=== PATIENT | female | born 2005 | race Hispanic/Latino ===

== ENCOUNTER 2024-06-01 14:29 | Emergency (ER) | payer BC, SELFPAY ==
--- NOTE | ~2024-06-01 | XR_ITS ---
CHEST RADIOGRAPH, PA AND LATERAL CLINICAL HISTORY: chest pain WORK ORDER DETAILER . COMPARISON: None available TECHNIQUE: PA and lateral views of the chest. FINDINGS The cardiomediastinal silhouette is unremarkable. The lungs are clear. Visualized osseous structures and soft tissues are unremarkable. IMPRESSION: No focal infiltrate or effusion. Reviewed, dictated and finalized at location A.
[2024-06-01 14:31] VITALS: BP 120/78; PULSE 93; RESP 18; TEMP 36.6; O2SAT 100
--- NOTE | 2024-06-01 14:32 | ECG_ITS ---
Test Date: 2024-06-01 14:38:43 Measurements Intervals [place] Rate: 89 P: 49 WV: 153 QRS: 95 QRSD: 98 T: 47 QT: 361 QTc: 440 Interpretive Statements SINUS RHYTHM RIGHT AXIS DEVIATION BORDERLINE ECG No previous ECG available for comparison Electronically Signed On 06-01-2024 15:57:31 CDT by Kermit Hurt D.O.
[2024-06-01 15:32] VITALS: O2SAT 100
[2024-06-01 15:33] VITALS: BP 117/76; PULSE 80; PULSE 82; RESP 20; O2SAT 99
--- NOTE | 2024-06-01 15:50 | ED.GENADULT ---
HPI - General Adult General Chief complaint: Chest Pain Stated complaint: Chest pain -sent by Time Seen by Provider: 06/01/24 15:29 History of Present Illness HPI narrative: 19-year-old female presenting to the emergency department for evaluation for to 3 days of intermittent left-sided chest pain. Patient states the pain as located just below her left breast. Patient denies any recent coughs colds or fevers. Patient denies any recent falls or injuries. Patient denies any prior cardiac history denies any previous PE or DVT. Patient denies any associated shortness of breath or calf tenderness. Related Data Allergies Allergy/AdvReac Type Severity Reaction Status Date / Time No Known Allergies Allergy Verified 06/01/24 15:32 Review of Systems Review of Systems: All systems reviewed & are unremarkable except as noted in HPI and below Exam Narrative: APPEARANCE: Well appearing, no pain, no distress, well-nourished. HEAD: normocephalic, atraumatic. EYES: PERRLA/EOMI, conjunctivae clear. NOSE: Normal no drainage EARS:TMS clear with good light reflex. THROAT: Pharynx clear, no exudate. NECK: Supple. No adenopathy, no masses. RESPIRATORY: Airway patent, respirations nonlabored. Clear to auscultation bilaterally, no rales, rhonchi, wheezing. CARDIOVASCULAR: Regular rate and rhythm without murmurs rubs or gallops. ABDOMINAL: Soft, nontender, nondistended, normal bowel sounds MUSCULOSKELETAL: Moves all extremities. Strength/ROM intact, No edema, No calf tenderness. NEURO: Alert. Cranial nerves II through XII intact. Grossly intact SKIN: Warm, dry. Normal Color Course Vital Signs Vital signs: Vital Signs Temperature 97.9 F 06/01/24 14:31 Pulse Rate 93 06/01/24 14:31 Respiratory Rate 18 06/01/24 14:31 Blood Pressure 120/78 06/01/24 14:31 Pulse Oximetry 100 06/01/24 14:31 Oxygen Delivery Room Air 06/01/24 14:31 Temperature 97.9 F 06/01/24 14:31 Pulse Rate 87 06/01/24 17:17 Respiratory Rate 18 06/01/24 17:17 Blood Pressure 113/72 06/01/24 17:17 Pulse Oximetry 97 06/01/24 17:17 Oxygen Delivery Room Air 06/01/24 15:32 Medical Decision Making [facility] Narrative Medical decision making narrative: 19-year-old female presents emergency department for evaluation for left-sided chest wall pain. Patient has been ongoing since early this morning. Patient is currently afebrile with no leukocytosis and hemoglobin of 12.3. D-dimer was not elevated INR is 1.0. No acute abnormalities on the patient's CMP patient had a negative troponin. Previous test was negative. Chest x-ray shows no acute cardiopulmonary abnormality. EKG showed normal sinus rhythm. Suspect pleurisy versus musculoskeletal chest wall pain. Patient did feel improved with treatment. Patient was updated on the results of her workup and was comfortable the plan for discharge and close follow-up. Differential Diagnosis Differential Diagnosis: COVID, RSV, influenza, pulmonary embolism, ACS Vital Signs Vital Signs: Vital Signs Temperature 97.9 F 06/01/24 14:31 Pulse Rate 93 06/01/24 14:31 Respiratory Rate 18 06/01/24 14:31 Blood Pressure 120/78 06/01/24 14:31 Pulse Oximetry 100 06/01/24 14:31 Oxygen Delivery Room Air 06/01/24 14:31 Temperature 97.9 F 06/01/24 14:31 Pulse Rate 87 06/01/24 17:17 Respiratory Rate 18 06/01/24 17:17 Blood Pressure 113/72 06/01/24 17:17 Pulse Oximetry 97 06/01/24 17:17 Oxygen Delivery Room Air 06/01/24 15:32 Lab Data Lab results reviewed: Yes I reviewed the patient's lab results. 06/01/24 15:40 06/01/24 15:40 Labs: Lab Results 06/01/24 06/01/24 Range/Units 15:40 16:39 WBC 7.8 (4.5-10.0) K/mm3 RBC 4.49 (4.2-5.4) M/mm3 Hgb 12.3 (12.0-15.0) g/dL Hct 38.6 (37.0-47.0) % MCV 86.0 (80-100) fl MCH 27.4 (26-34) pg MCHC 31.9 L (32-36) g/dl RDW 13.1 (11.5-14.5) % Plt Count 306 (150-375) k/mm3 MPV 9.9 (7.4-10.4) fl Immature Gran % (Auto) 0.1 (0-0.5) % Neut % (Auto) 57.0 (45.5-73.1) % Lymph % (Auto) 33.3 (18.3-44.2) % Fisher % (Auto) 8.3 (2.6-8.5) % Eos % (Auto) 0.9 (0-4.4) % Baso % (Auto) 0.4 (0.2-1.2) % Lymph # (Auto) 2.60 (0.9-3.2) K/mm3 Fisher # (Auto) 0.7 H (0.1-0.6) K/mm3 Eos # (Auto) 0.1 (0-0.3) K/mm3 Baso # (Auto) 0.0 (0.0-0.1) K/mm3 Abs Immat Gran (auto) 0.01 (0.00-0.031) K/mm3 Absolute Neuts (auto) 4.5 (1.3-6.7) K/mm3 Absolute Nucleated RBC 0.000 (0.0-0.012) K/mm3 Nucleated RBC % 0.0 (0.0-0.2) % PT 13.6 (11.1-14.7) Seconds INR 1.0 APTT 32.2 (22.3-36.8) Seconds D-Dimer < 0.27 (<0.48) ug/mL Sodium 137 (137-145) mmol/L Potassium 3.9 (3.4-5.0) mmol/L Chloride 106 (98-107) mmol/L Carbon Dioxide 22 (22-30) mmol/L Anion Gap 9 (4-12) mmol/L BUN 7 (7-17) mg/dL Creatinine 0.69 L (0.7-1.0) mg/dL Estim Creat Clear Calc Not Reportable Estimated GFR > 60 (59 - ) Glucose 91 (65-110) mg/dL Calcium 9.0 (8.4-10.2) mg/dL Total Bilirubin 0.5 (0.2-1.3) mg/dL AST 30 (14-36) U/L ALT 19 (6-35) U/L Alkaline Phosphatase 70 (38-126) U/L Troponin I < 0.012 (0.000-0.034) ng/mL Total Protein 8.0 (6.3-8.2) g/dL Albumin 4.6 (3.5-5.1) g/dL Lipase 63 (23-300) U/L POC Urine HCG, Qual Negative (Negative) Discharge Plan Discharge Clinical Impression: Atypical chest pain Patient Disposition: Home, Self-Care Condition: Stable Instructions: Antibiotic Form, Pleurisy (ED), Chest Wall Pain (ED) Additional Instructions: Tylenol and ibuprofen for pain control. Have close follow-up with your primary care physician. If you have any worsening symptoms and please call or return to the emergency department. Patient Language: [place] Follow-up/Referrals: PHYSICIAN NOT ON STAFF,NONSTAFF [Non-Staff] - Quality HEART score for chest pain patients History: slightly suspicious ECG: normal Age: < or = to 45 years Risk factors: no risk factors known Troponin: < or = to 1x normal limit Heart score: 0
[2024-06-01 15:53] LABS: Basophils Percent Auto 0.4 % (0.2-1.2); Eosinophils Absolute Auto 0.1 K/mm3 (0-0.3); Eosinophils Percent Auto 0.9 % (0-4.4); Hematocrit 38.6 % (37.0-47.0); Hemoglobin 12.3 g/dL (12.0-15.0); Immature Granulocyte Absolute 0.01 K/mm3 (0.00-0.031); Immature Granulocyte Percent A 0.1 % (0-0.5); Lymphocytes Percent Auto 33.3 % (18.3-44.2); Mean Corpuscular HGB Conc 31.9 g/dl (32-36); Mean Corpuscular Hemoglobin 27.4 pg (26-34); Mean Platelet Volume 9.9 fl (7.4-10.4); Monocytes Absolute Auto 0.7 K/mm3 (0.1-0.6); Monocytes Percent Auto 8.3 % (2.6-8.5); Neutrophils Absolute Auto 4.5 K/mm3 (1.3-6.7); Platelet Count Result 306 k/mm3 (150-375); Red Blood Count 4.49 M/mm3 (4.2-5.4); Red Cell Distribution Width 13.1 % (11.5-14.5); White Blood Count 7.8 K/mm3 (4.5-10.0)
--- OUTSIDE RECORDS SUMMARY | 2024-06-01 15:54 | XMS_ITS ---
Author Organization [facility] Address [address] [phone] Care Team Providers Care Baggage Agent Name Role Phone Riri Davey Primary Care Provider REASON FOR VISIT RESCHEDULE Encounters Encounter Location Date Provider Diagnosis [facility] [address] [place] [phone] 07/27/2023 Riri Davey Plan Of Treatment Next Appt Details Provider Name:Riri Wallace ki, 09/21/2024 09:15:00 AM, [address] [place] [address], [phone], Progress Notes * Germaine BOLANOSOB:[birth year] (18 yo F)Acc No.[id number]:07/27/2023 Patient: Kristie LOUISE :2005 A ge:18 Y S ex:Female Address:[address] [place] [address] * true * Date: Generated for Printi ng/Faxing/eTransmitting on: 0 06/01/2024 03:54 PM CDT
--- OUTSIDE RECORDS SUMMARY | 2024-06-01 15:54 | XMS_ITS ---
Author Organization [facility] Address [address] [phone] Care Team Providers Care It Security Manager Name Role Phone Riri Davey Primary Care Provider REASON FOR VISIT tmj referral Encounters Encounter Location Date Provider Diagnosis [facility] [address] [id number] 02/16/2023 Riri Davey Plan Of Treatment Next Appt Details Provider Name:Riri bradshaw, 09/21/2024 09:15:00 AM, [address] [place] [address], [phone], Progress Notes * Germaine BOLANOSOB:[birth year] (17 yo F)Acc No.[id number]:02/16/2023 Patient: Kristie Aaron :2005 A ge:17 Y S ex:Female Address:[address] [place] [address] * true * Date: Generated for Printi ng/Faxing/eTransmitting on: 0 06/01/2024 03:54 PM CDT
--- OUTSIDE RECORDS SUMMARY | 2024-06-01 15:54 | XMS_ITS | Patient Health Record ---
Author Organization [facility] Address [address] [phone] Care Team Providers Care Art Department Head Name Role Phone Riri Davey Primary Care Provider [phone] Allergies Allergen (clinical drug ingredient) Drug/Non Drug Allergy documented on EMR Reaction Allergy Type Onset Date Status Equine derived substance (FN) horses (uncoded) rash Allergy Active Reason For Referral No Information Medications Medication SIG (Take, Route, Frequency, Duration) Notes Start Date End Date Status Mometasone Furoate 0.1 % 1 application E xternally Once a day for 30 days 09/17/2023 Active Ketoconazole 2 % 1 application Floorperson ally Once a day for 90 days 09/17/2023 09/11/2024 Active Immunizations Vaccine Route Administration Date Status Comme nts Covid-19 Pfizer BioNtech Unknown 06/04/2020 Administere d Covid-19 Pfizer BioNtech Unknown 07/01/2020 Administere d DtaP - < 7 years Unknown 2003 Administered DtaP - < 7 years Unknown 2003 Administered DtaP - < 7 years Unknown 2003 Administered DtaP - < 7 years Unknown 10/07/2004 Administered DtaP - < 7 years Unknown 04/25/2007 Administered Fluvirin IM Intramuscular 04/18/2015 Administered Fluzone Quad >6 mo IM Intramuscular 12/18/2019 Administere d Fluzone Quad >6 mo IM Intramuscular 12/09/2020 Administere d Fluzone Quad >6 mo IM Intramuscular 02/16/2023 Administere d Hepatitis A Peds 1-18 IM Intramuscular 09/19/2018 Administ ered Hepatitis A Peds 1-18 IM Intramuscular 03/25/2019 Administ ered Hepatitis B (Peds/Adol) - Unknown 2003 Administer ed Hepatitis B (Peds/Adol) - Unknown 2003 Administer ed Hepatitis B (Peds/Adol) - Unknown 2003 Administer ed Hepatitis B (Peds/Adol) - IM Intramuscular 04/29/2021 Admi nistered Hepatitis B (Peds/Adol) - IM Intramuscular 06/30/2021 Admi nistered Hepatitis B Adult IM Intramuscular 02/16/2023 Administered Hib Unknown 2003 Administered Hib Unknown 2003 Administered Hib Unknown 2003 Administered Hib Unknown 07/08/2004 Administered HPV9 Gardasil Unknown 10/04/2017 Refused HPV9 Gardasil IM Intramuscular 05/02/2018 Administered HPV9 Gardasil IM Intramuscular 07/04/2018 Administered HPV9 Gardasil IM Intramuscular 11/12/2018 Administered Influenza Vaccine Declined Unknown 11/20/2019 Refused Meningococcal IM Intramuscular 09/03/2014 Administered Meningococcal IM Intramuscular 06/29/2016 Administered Meningococcal IM Intramuscular 11/20/2019 Administered Meningococcal-Trumenba IM Intramuscular 11/20/2019 Adminis tered Meningococcal-Trumenba IM Intramuscular 05/25/2020 Adminis tered MMR Unknown 04/10/2004 Administered MMR Unknown 04/25/2007 Administered Pneumococcal, Ped. under 5 yrs. Unknown 2003 Administered Pneumococcal, Ped. under 5 yrs. Unknown 2003 Administered Pneumococcal, Ped. under 5 yrs. Unknown 2003 Administered Pneumococcal, Ped. under 5 yrs. Unknown 04/10/2004 Administered Poliovirus IPV Unknown 2003 Administered Poliovirus IPV Unknown 2003 Administered Poliovirus IPV Unknown 2003 Administered Poliovirus IPV Unknown 04/25/2007 Administered TDaP over 11 yrs. (Adacel) IM Intramuscular 09/03/2014 Adm inistered Varicella (Varivax) Unknown 04/10/2004 Administered Varicella (Varivax) Unknown 04/25/2007 Administered Social History Tobacco Use: Social History Observation Description Date Details (start date - stop date) Never Smoker NA - NA Household Smoke: Question Answer Notes SMOKER IN HOUSEHOLD: no SECOND HAND SMOKE ASSESSMENT: SECOND HAND SMOKE COUNNSELING: Audit-C Question Answer Notes Did you have a drink containing alcohol in the p ast year? No Points 0 Interpretation Negative TOBACCO USE - Question Answer Notes Are you a: Never Tobacco user EXERCISE ASSESSMENT Question Answer Notes ASSESSMENT PERFORMED Yes Problems Problem Type SNOMED Code ICD Code Onset Dates Problem Status W/U Status Risk Notes Problem Vitamin D deficiency (38471047) Vitamin D deficiency (E55.9) Active confirmed Problem 768709642 Dysmenorrhea (N94.6) Active confirmed Problem 58151471 Slow transit constipation (K59.01) Active confirmed Problem 39005877 Examination (Z00.00) Active confirmed Problem 710027129 Patellofemoral disorder of right knee (M22.2X1) Active confirmed Vital Signs Blood pressure diastolic 74 mm Hg 09/16/2023 Height 59.5 in 09/16/2023 Blood pressure systolic 116 mm Hg 09/16/2023 Weight 133 lbs 09/16/2023 BMI 26.41 kg/m2 09/16/2023 Encounters Encounter Location Date Provider Diagnosis [address] [id number] [facility] [address] [place] [phone] 09/16/2023 Riri Davey Annual physical exam Z00.00 ; Encounter for screening for cardiovascular disorders Z13.6 ; Encounter for screening for other disorder Z13.89 ; Blood pressure check Z01.30 ; Encounter for aspirin therapy Z79.82 ; BMI 26.0-26.9,adult Z68.26 ; Patellofemoral disorder of right knee M22.2X1 ; Onychomycosis of toenail B35.1 and Candidal intertrigo B37.2 Assessments Encounter Date Diagnosis (ICD Code) Assessment Notes Treatment Notes Treatment Clinical Notes Section Notes 09/16/2023 Annual physical exam (ICD-10 - Z00.00) Health Screening Guidelines, Women Ages 18 to 39 material was published ca 1200 ,vit d 1000iu/day. exercise 3 hr/week. Incorporate weights into workout regimen. Mediterranean diet. Shots reviewed. Recommend to stay up on covid 19 and RSV vaccine/boosters as recommended by CDC. pt defer labs this yr check next yr 09/16/2023 Encounter for screening for cardiovascular disorders (ICD-10 - Z13.6) cardiovascular risk assessement was performed and when appropriate [place] risk was calculated.( 5-15 min) Healthy lifestyle and diet were reviewed and improtance of the healthy BMI was emphasized. Family history and personal risks for development of the cardiovascular disease were discussed and stratified. 09/16/2023 Encounter for screening for other disorder (ICD-10 - Z13.89) importance of screening for cervical cancer was discussed with patient. Evaluation method using five A's model: Ask, Assess Advise,Assist and Arrange was implemented - Standarized Alcohol Screening Questionnaire reccomended by [facility] was used. Approximately 8 minutes of the clinical staff time was spend implementing and interpreting the tool DEPRESSION SCREEN: PHQ-2 triggering PHQ-9 implemented. Approximately 8 min of the clinical staff time spend explaining and implementing the questionnaire. 09/16/2023 Blood pressure check (ICD-10 - Z01.30) 09/16/2023 Encounter for aspirin therapy (ICD-10 - Z79.82) 09/16/2023 BMI 26.0-26.9,adult (ICD-10 - Z68.26) 09/16/2023 Patellofemoral disorder of right knee (ICD-10 - M22.2X1) pt w pain depsite ice,tyl, brace exericses given can see dr zamudio 09/16/2023 Onychomycosis of toenail (ICD-10 - B35.1) bl all 10 toes disc penlac vs lamisil. pt nt good With swallowing pills and Penlac is only 50% effective so patient defers treatment for now. She understands this cosmetic but should she has any signs and symptoms of infection or pain to call me for tx 09/16/2023 Candidal intertrigo (ICD-10 - B37.2) refill med Plan Of Treatment Next Appt Details Provider Name:Riri bradshaw, 09/21/2024 09:15:00 AM, [address] [place] [address], [phone], Insurance Providers Payer Name Payer Address Payer Phone Subscriber Number Group Number Insured Name Patient Relationship to Insured Coverage Start Date Coverage End Date [facility] [address] [place] [address] [id number] Song Gonzalez Child 4 Medical (General) History Medical History History ICD Code ou strabismus 09/21 mri rt knee patello fem syndorme Surgical History Surgery Date(Month/Year) ou strabismus
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
--- OUTSIDE RECORDS SUMMARY | 2024-06-01 15:55 | XMS_ITS ---
Author Organization [facility] Address [address] [place] [phone] Care Team Providers Care Senior Data Modeler Name Role Phone Riri Davey Primary Care Provider [phone] Allergies Allergen (clinical drug ingredient) Drug/Non Drug Allergy documented on EMR Reaction Allergy Type Onset Date Status Equine derived substance (FN) horses (uncoded) rash Allergy Active REASON FOR VISIT wellness, MA depression/ tobacco/ alcohol ( AUDIT-C), , MAG-prev female 18- 39 (Consider chlamydia screen for under 26), PNEUMONIA :ALL with:CKD, DM,CHF, smokers, COPD, alcoholism,chronic liver disease, cont. cancer and hx of, radiation therapy and hx of, immunosuppressive therapy, IF BMI >30 obesity 35 STOP BANG, after hours?- C only < 9am >5pm, , dz general exam 2, dz knee Medications Medication SIG (Take, Route, Frequency, Duration) Notes Start Date End Date Status Mometasone Furoate 0.1 % 1 application E xternally Once a day for 30 days 09/17/2023 Active Ketoconazole 2 % 1 application Hangersmith ally Once a day for 90 days 09/17/2023 09/11/2024 Active Social History Tobacco Use: Social History Observation Description Date Details (start date - stop date) Never Smoker NA - NA Audit-C Question Answer Notes Did you have a drink containing alcohol in the p ast year? 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 Approximately 8 minutes of the [...] - B37.2) refill med Plan Of Treatment Medication Medication Name Sig Start Date Stop Date Notes Mometasone Furoate 0.1 % 1 application E xternally Once a day for 30 days 09/17/2023 Ketoconazole 2 % 1 application Hangersmith ally Once a day for 90 days 09/17/2023 09/11/2024 Treatment Notes Assessment Notes Annual physical exam Health Screening Guidelines, Women Ages 18 to 39 material was published ca 1200 ,vit d 1000iu/day. exercise 3 hr/week. Incorporate weights into workout regimen. Mediterranean diet. Shots reviewed. Recommend to stay up on covid 19 and RSV vaccine/boosters as recommended by CDC. pt defer labs this yr check next yr Encounter for screening for other disord er importance of screening for cervical cancer was discussed with patient. Patellofemoral disorder of right knee pt w pain depsite ice,tyl, brace exericses given can see dr zamudio Onychomycosis of toenail bl all 10 toes disc penlac vs lamisil. pt nt good With swallowing pills and Penlac is only 50% effective so patient defers treatment for now. She understands this cosmetic but should she has any signs and symptoms of infection or pain to call me for tx Candidal intertrigo refill med Next Appt Details Follow Up: 1 Year, Reason: Provider Name:Riri Wallace ki, 09/21/2024 09:15:00 AM, [address] [place] [address], [phone], Progress Notes * Germaine BOLANOSOB:[birth year] (18 yo F)Acc No.[id number]:09/16/2023 Progress Note Patient: Serjio LOUISEabel Provider: Laura Davey DO., FAAFP :2005 A ge:18 Y S ex:Female Date:09/16/2023 Address:[address] [place], [place] [id number] Subjective: * Chief Complaints: * W ellnessMA depression/ tobacco/ alcohol ( AUDIT-C)MAG-prev female 18- 39 (Consider chlamydia screen for under 26)PNEUMONIA :ALL with:CKD, DM,CHF, smokers, COPD, alcoholism,chronic liver disease cont. cancer and hx of, radiation therapy and hx of, immunosuppressive therapyIF BMI >30 obesity 35 STOP BANGafter hours?- [facility] only < 9am >5pmDz general exam 2Dz knee * HPI: D EPRESSION SCREENING: PHQ-2 (2015 Edition) L ittle interest or pleasure in doing things??Not at all F eeling down, depressed, or hopeless? N ot at all T otal Score 0 N otes: Wellness. She walks about 7500 steps per day. Just finished sophomore year in college. She is in multiple leadership positions. Has had MRI of her knee. Results came in yesterday. Shows patellofemoral syndrome. She has pain especially after a lot of activity. It does not give out but she feels like it locks up. She occasionally takes Tylenol and she does wear a knee brace. She also has toenail fungus. Her right first toe is thick and cracked and yellowing look like it is falling off. Does not hurt her. No redness or swelling rash bl thighs. in past got 2 creasm derm,woudl lke ref. milf itch, rubs toggether. Problem 1: P ATIENT HERE ALSO FOR YEARLY PHYSICAL. The health maintnance issues were discussed. The improtance of appropriate nutrition, adequate sleep and regular exercise was emphasized and explained. All questions were answered to the patient's satisfaction. Patient was instructed on the improtance of avoiding habits detrimental to overall health like smoking, illicit drugs or excessive alcohol use. Patient's records were updated including last: P AP SMEAR T DAP/ TD BOOSTER I NFLUENZA VACCINE C OVID VACCINE H PV VACCINE C ARDIOVASCULAR EVENT PREVENTION F AMILY HISTORY was updated A LLERGIES were updated V ITAMIN SUPPLEMENTS were discussed Y EARLY LABS WERE ORDERED. * ROS: F ollow up ROS: General n o fever, chills. C ardiology n o chest pain, sob, palpitations. P ulmonology n o cough or wheezing. * Medical History: * Surgical History: o u strabismus * Hospitalization/Major Diagno stic Procedure: D enies Past Hospitalization * Family History: F ather: alive, diagnosed with No Known Histories. M other: alive, diagnosed with No Known Histories. * Social History: T OBACCO USE: T OBACCO USE - A re you a: N ever Tobacco user A SARAH-C: A sarah-C D id you have a drink containing alcohol in the past year? N o P oints 0 I nterpretation N egative N UTRITION/EXERCISE : E XERCISE ASSESSMENT A SSESSMENT PERFORMED Y es NUTRITION ASSESSMENT A SSESSMENT PERFORMED Y es D rug/Alcohol: D rugs H ave you used drugs other than those for medical reasons in the past 12 months? N o * Medications: N one * Allergies: h orses: rash - Allergyno[Allergies Verified] Objective: * Vitals: H t: 59.5 in, Wt: 133 lbs, BMI:26.41Index, Pulse sittin, BP-Treatment: 116/74 mm Hg, Oxygen sat %: 99, Technican:: Vanessa Garces * Examination: B rief normal exam: GENERAL APPEARANCE: w ell nourished and hydrated. HEENT: T M's normal, pharynx and tonsils normal, PERRLA, conjunctiva normal. no cervical lymphadenopathy. ORAL CAVITY: n ormal, no lesions, , moist mucosa, good dentition. NECK: s upple, thyroid non palp. CHEST: n ormal shape and expansion, good aeration. HEART: r egular sinus rhythm, no murmurs, no bruit. LUNGS: c lear to auscultation, good air flow. ABDOMEN: s oft, NT/ND, BS present, no obvious masses felt, no hepatosplenomegaly skin thighs w hyperpigmented lesions , not tender,red ,no hyperpigmented lesiosn. SKIN: n ormal, no rash. EXTREMITIES: n o cce, no calf tenderness/pain to palpation, calf soft. b l toenails yellow thick crcked but nvi le. K nee / Traore: INSPECTION: n o swelling or redness, no erythema on the joint. RANGE OF MOTION: F ROM with osme pain medial rt knee w flex/ext adn meidal pressure. CREPITUS: n one. COLLATERAL LIGAMENTS: s table to varus and valgus stress, but w some pain. MOI: n egative. DRAWER TEST: n egative. n vi le, nl hip rom, nl ankle rom. Assessment: * Assessment: 1. A nnual physical exam - Z00.00 (Primary) 2 . E ncounter for screening for cardiovascular disorders - Z13.6 3 . E ncounter for screening for other disorder - Z13.89 4 . B lood pressure check - Z01.30 5 . E ncounter for aspirin therapy - Z79.82 S pecify :assessement 6 . B UT 26.0-26.9,adult - Z68.26 7 . P atellofemoral disorder of right knee - M22.2X1 8 . O nychomycosis of toenail - B35.1 ?9. C andidal intertrigo - B37.2 Plan: * Treatment: 2. E ncounter for screening for cardiovascular disorders Clinical Notes: cardiovascular risk assessement was performed and when appropriate [place] risk was calculated.( 5-15 min) Healthy lifestyle and diet were reviewed and improtance of the healthy BMI was emphasized. Family history and personal risks for development of the cardiovascular disease were discussed and stratified. 3. E ncounter for screening for other disorder Notes: importance of screening for cervical cancer was discussed with patient. Clinical Notes: Evaluation method using five A's model: Ask, Assess Advise,Assist and Arrange was implemented - Standarized Alcohol Screening Questionnaire reccomended by [employer] was used. Approximately 8 minutes of the clinical staff time was spend implementing and interpreting the tool DEPRESSION SCREEN: PHQ-2 triggering PHQ-9 implemented. Approximately 8 min of the clinical staff time spend explaining and implementing the questionnaire. 4. P atellofemoral disorder of right knee Notes: pt w pain depsite ice,tyl, brace exericses given can see dr zamudio 5. O nychomycosis of toenail Notes: bl all 10 toes disc penlac vs lamisil. pt nt good With swallowing pills and Penlac is only 50% effective so patient defers treatment for now. She understands this cosmetic but should she has any signs and symptoms of infection or pain to call me for tx 6. C andidal intertrigo Start Mometasone Furoate Cream, 0.1 %, 1 application, Externally, Once a day, 30 days, 30, Refills 1; S tart Ketoconazole Cream, 2 %, 1 application, Externally, Once a day, 90 days, 3, Refills 3.? Notes: refill med * Procedure Codes: G 0444 Depression Annual Screening, Modifiers: 59 G0442 Alcohol Screening, Modifiers: 59 G0446 Cardiovascular Disease Annual Behavioral Therapy, Modifiers: 59 3074F SYST BP LT 130 MM [id number] DIAST BP < 80 MM HG * Preventive Medicine: COUNSELING: B UT MANAGEMENT Dietary consultation order provided?Yes BMI Management Provided & Dietary Consultation Order Provided Y es EXERCISE COUNSELING PROVIDED Y es NUTRITION/DIETARY COUNSELING Y es Agreed upon fruits and vegetables goal?at least 5 servings per day Agreed upon weekly limit for eating high fat foods- 1 or less Agreed upon exercise goal- 3 -4 times/week, 30-60 minutes D EPRESSION FOLLOW UP TREATMENT PLAN DISCUSSED WITH PATIENT-?no follow-up required * Follow Up: 1 Year * Billing Information: * Visit Code: [id number] Estab 18-39 years well care. Modifiers: [id number] Established office visit. * Procedure Codes: G0444 Depression Annual Screening. Modifiers: 59 G0442 Alcohol Screening. Modifiers: 59 G0446 Cardiovascular Disease Annual Behavioral Therapy. Modifiers: 59 3074F SYST BP LT 130 MM HG. 3078F DIAST BP < 80 MM HG. Care Plan Details* * Sign off status: Completed true * Provider: Laura Davey DO., MARIAELENAFP Date: 0 09/16/2023 Generated for Elayne covarrubias/Terese/Desitting on: 0 06/01/2024 03:54 PM CDT History and Physical Notes * HPI (History of Present Illness) Category Sub-Category Detail Notes Category Not es DEPRESSION SCREENING PHQ-2 (2015 Edition) Little interest or pleasure in doing things?: Not at all Feeling down, depressed, or hopeless?: N ot at all Total Score: 0 Notes Problem 1: PATIENT HERE ALSO FOR YEARLY PHYSICAL. The health maintnance issues were discussed. The improtance of appropriate nutrition, adequate sleep and regular exercise was emphasized and explained. All questions were answered to the patient's satisfaction. Patient was instructed on the improtance of avoiding habits detrimental to overall health like smoking, illicit drugs or excessive alcohol use. Patient's records were updated including last: PAP SMEAR TDAP/ TD BOOSTER INFLUENZA VACCINE COVID VACCINE HPV VACCINE CARDIOVASCULAR EVENT PREVENTION FAMILY HISTORY was updated ALLERGIES were updated VITAMIN SUPPLEMENTS were discussed YEARLY LABS WERE ORDERED Examination Category Sub-Category Detail Notes Category Not es Knee / Traore MOI: negative nvi le, nl hip rom, nl ankle rom DRAWER TEST: negative INSPECTION: no swelling or redne ss, no erythema on the joint RANGE OF MOTION: FROM with osme pain medial rt knee w flex/ext adn meidal pressure COLLATERAL LIGAMENTS: stable to varus an d valgus stress, but w some pain CREPITUS: none Brief normal exam GENERAL APPEARANCE: well nourished a nd hydrated bl toenails yellow thick crcked but nvi le HEENT: TM's normal, pharynx and tonsils normal, PERRLA, conjunctiva normal. no cervical lymphadenopathy ORAL CAVITY: normal, no lesions, , moist mucosa, good dentition NECK: supple, thyroid non palp CHEST: normal shape and exp ansion,good aeration HEART: regular sinus rhythm , no murmurs, no bruit LUNGS: clear to auscultatio n, good air flow ABDOMEN: soft, NT/ND, BS pres ent, no obvious masses felt, no hepatosplenomegaly skin thighs w hyperpigmented lesions , not tender,red ,no hyperpigmented lesiosn SKIN: normal, no rash EXTREMITIES: no cce, no calf tend erness/pain to palpation, calf soft
--- OUTSIDE RECORDS SUMMARY | 2024-06-01 15:55 | XMS_ITS | Referral Summary ---
Author Organization [facility] Address [address] [place] [address] Care Team Providers Care Crate Repairer Name Role Phone Riri Davey DO Primary Care Provider [phone] Allergies Active Allergy Reactions Criticality Noted Date [...] Problem Noted Date Diagnosed Date Dysmenorrhea 02/20/2024 Social History Tobacco Use Types Packs/Day Years [...] file Not on file Not on file Plan of Treatment Upcoming Encounters Date Type Department Care Team (Late st Contact Info) Description 09/21/2024 9:15 AM CDT Office Visit [facility] [address] [address] Riri Davey DO [address] [place] [address] [phone] Procedures Procedure Name Priority Date/Time Associated Diagnosis Comments CHLAMYDIA/GONORRHEA BY NUCLEIC ACID AMPLIFICATION Routine 04/21/2021 11:45 AM EMERGENCY DOCTOR Encounter for screening for other infectious and parasitic diseases from Last 3 Months or Most Recently Relevant to Health Maintenance Results * Chlamydia/Gonorrhea by Nucleic Acid Amplification (04/21/2021 11:45 AM EMERGENCY DOCTOR) Chlamydia trachomatis by Nucleic Acid Amplification Negative Negative [facility] 04/22/2021 8:05 PM EMERGENCY DOCTOR [facility] Neisseria gonorrhoeae by Nucleic Acid Amplification Negative Negative [facility] 04/22/2021 8:05 PM EMERGENCY DOCTOR [facility] Disclaimer The expected normal reference range is negative. Positive results are reported to the [facility] Department of Public Health. The [employer] [...] recommended. [facility] 04/22/2021 8:05 PM EMERGENCY DOCTOR [facility] Urine URINE SPECIMEN / Unknown 04/21/2021 11:45 AM EMERGENCY DOCTOR 04/21/2021 10:41 PM EMERGENCY DOCTOR Riri Davey DO [facility]N ORD Performing Organization Address City/State/[facility] [[email or web address]] Co de Phone Number [facility] [address] [place] [address] from Last 3 Months or Most Recently Relevant to Health Maintenance Care Teams Crate Repairer Relationship Specialty Start Date End Date Riri Davey DO [address] [place] [address] [phone] PCP - General Family Practice 01/31/24
[2024-06-01 16:03] LABS: Alanine Aminotransferase 19 U/L (6-35); Albumin Level 4.6 g/dL (3.5-5.1); Alkaline Phosphatase 70 U/L (38-126); Anion Gap 9 mmol/L (4-12); Aspartate Amino Transferase 30 U/L (14-36); Bilirubin,Total 0.5 mg/dL (0.2-1.3); Carbon Dioxide 22 mmol/L (22-30); Chloride 106 mmol/L (98-107); Glucose 91 mg/dL (65-110); Lipase 63 U/L (23-300); Potassium 3.9 mmol/L (3.4-5.0); Sodium 137 mmol/L (137-145)
[2024-06-01 16:04] LABS: Prothrombin Time 13.6 Seconds (11.1-14.7)
[2024-06-01 16:05] LABS: Partial Thromboplastin Time 32.2 Seconds (22.3-36.8)
[2024-06-01 16:06] LABS: Blood Urea Nitrogen 7 mg/dL (7-17); Estimated Glomerular Filt Rate > 60
[2024-06-01 16:10] LABS: D Dimer < 0.27 ug/mL (<0.48)
[2024-06-01 16:14] LABS: Troponin I < 0.012 ng/mL (0.000-0.034)
--- NOTE | 2024-06-01 16:40 | PC.NURSE ---
pt was prescribed IM Toradol. This RN eric up the medication but pt refused medication. medication was wasted
[2024-06-01 16:42] LABS: BEDSIDEPREGUCG Negative (Negative)
[2024-06-01 17:17] VITALS: BP 113/72; PULSE 87; RESP 18; O2SAT 97
== END 2024-06-01 17:15 | disposition home or self-care (01) ==
PROVIDERS: Emergency Medicine; Emergency Provider Emergency Medicine
DX: R07.89 Other chest pain (principal)
CPT/HCPCS: 36415; 71046; 80053; 81025; 83690; 84484; 85025; 85380; 85610; 85730; 93005; 99284